=== PATIENT | female | born 1960 | race Caucasian/White ===

== ENCOUNTER 2018-05-25 19:43 | Emergency (ER) | payer SELFPAY ==
[2018-05-25] MEDS ORDERED: Ketorolac 30 MG/ML SDV IVPUSH ONE (19:58)
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
[2018-05-25] MEDS ORDERED: Bacitracin Oint 1 GM U/D Packet TOP ONE (21:12)
--- NOTE | 2018-05-28 10:37 | CR ---
EXAM DATE: 05/25/18 PATIENT'S AGE: 57 Patient: ALEXIS ANDRADE Facility: [place], [place] Site . Site : 1960 Study: XRay Extremity Left humerus [id number]/5/2018 8:50:55 PM Ordering Physician: Marko Escalona Final Report: Indication: Trauma Technique: Two views of the left humerus Comparison: None available Findings/Impression: Bones: No displaced fracture seen. No dislocation. Joint spaces: Unremarkable. Soft tissues: An irregular soft tissue lucency in the region of the deltoid muscle which may be related to fat planes, although soft tissue gas is not excluded. A small ill-defined calcific density adjacent to the scapular tip, nonspecific. Dictated by Paxton Londono MD @ 05/25/2018 8:55:17 PM Dictated by: Paxton Londono MD @ 05/25/2018 20:55:23 (Electronic Signature) Report Signed by Proxy. MARE
--- NOTE | 2018-05-28 10:38 | CR ---
EXAM DATE: 05/25/18 PATIENT'S AGE: 57 Patient: ALEXIS ANDRADE Facility: [place], [place] Site . Site : 1960 Study: XRay Extremity Left elbow [id number]/5/2018 8:51:27 PM Ordering Physician: Marko Escalona Final Report: INDICATION: Elbow Trauma TECHNIQUE: Elbow radiograph 2 views left COMPARISON: None FINDINGS: Bone: No acute fractures or aggressive bone lesions are identified. Joint: The elbow joint is unremarkable. No significant displacement of the anterior or posterior fat pads noted to suggest an effusion. Soft tissue: Unremarkable. No radiopaque foreign bodies are seen. IMPRESSION: 1. No acute osseous injuries or abnormalities are noted. Dictated by: Grant Walls MD @ 05/25/2018 20:53:36 (Electronic Signature) Report Signed by Proxy. [facility] HOSPITALMilena
--- NOTE | 2018-05-28 10:39 | CR ---
EXAM DATE: 05/25/18 PATIENT'S AGE: 57 Patient: ALEXIS ANDRADE Facility: [place], [place] Site . Site : 1960 Study: XRay Hip Left [id number]/5/2018 8:51:54 PM Ordering Physician: Marko Escalona Final Report: INDICATION: Hip trauma TECHNIQUE: Hip radiograph 2 views left COMPARISON: None FINDINGS: Bone: No acute fractures or aggressive bone lesions are identified. Joint: The hip joint is unremarkable. The visualized sacroiliac joints are unremarkable in appearance. The pubic symphysis is normal in appearance. Soft tissue: Unremarkable. No radiopaque foreign bodies are seen. There is a 9 mm density projecting over the obturator ring. This may represent a calcified lymph node. IMPRESSION: 1. No acute osseous injuries or abnormalities are noted. Dictated by Grant Walls MD @ 05/25/2018 8:56:41 PM Dictated by: Grant Walls MD @ 05/25/2018 20:56:47 (Electronic Signature) Report Signed by Proxy. [facility]
--- NOTE | 2018-05-28 10:41 | CR ---
EXAM DATE: 05/25/18 PATIENT'S AGE: 57 Patient: ALEXIS ANDRADE Facility: [place], [place] Site . Site : 1960 Study: XRay Extremity Left forearm [id number]/5/2018 8:52:22 PM Ordering Physician: Marko Escalona Final Report: INDICATION: Forearm Trauma TECHNIQUE: Forearm radiograph 2 views left COMPARISON: None FINDINGS: Bone: No acute fractures or aggressive bone lesions are identified. Joint: The visualized radiocarpal and elbow joints are unremarkable, but the elbow joint is not profiled. If there is pain or tenderness in this region, dedicated views of the elbow are recommended. Soft tissue: Unremarkable. No radiopaque foreign bodies are seen. IMPRESSION: 1. No acute osseous injuries or abnormalities are noted. Dictated by: Grant Walls MD @ 05/25/2018 20:57:26 (Electronic Signature) Report Signed by Proxy. MARE
== END 2018-05-25 21:31 | disposition home or self-care (01) ==
LOC: MW.ED 19:43
DX: S70.02XA Contusion of left hip, initial encounter (principal); S50.312A Abrasion of left elbow, initial encounter; Z91.040 Latex allergy status; Z88.6 Allergy status to analgesic agent; Y04.0XXA Assault by unarmed brawl or fight, initial encounter
CPT/HCPCS: 73060; 73070; 73090; 73502; 96374; 99284; J1885

== ENCOUNTER 2019-03-19 10:41 | Observation (INO) | payer OTHER ==
[2019-03-19] MEDS ORDERED: Albuterol/Ipratropium 3.0-0.5 MG/3 ML Neb Soln ONE (10:45)
[2019-03-19] MEDS ORDERED: Diltiazem 25 MG/5 ML SDV ONE (10:47)
[2019-03-19] MEDS ORDERED: Diltiazem 25 MG/5 ML SDV IVPUSH ONE (10:48)
[2019-03-19] MEDS ORDERED: Albuterol/Ipratropium 3.0-0.5 MG/3 ML Neb Soln NEB ONE (10:49)
[2019-03-19] MEDS ORDERED: Diltiazem 125 MG in Sodium Chloride 0.9% 100 ML IV SCH (11:00)
[2019-03-19] MEDS ORDERED: Sodium Chloride 0.9% 1,000 ML IV ONE (11:05)
--- NOTE | 2019-03-19 11:14 | EDM.PDOC ---
ED HPI GENERAL MEDICAL PROBLEM - General Chief Complaint: Chest Pain Stated Complaint: SHORTNESS OF BREATH Time Seen by Provider: 03/19/19 10:44 Source of Information: Reports: Patient History Limitations: Reports: Other (Anxiety) - History of Present Illness INITIAL COMMENTS - FREE TEXT/NARRATIVE: HISTORY AND PHYSICAL: History of present illness: Presents reporting shortness of breath for the last "couple of days". She states this morning it got worse. She is a regular every day smoker. She states that she had a physical by her regular doctor back in [facility] in Dec, 2018. Her medical problems include hypertension and GERD tobacco abuse and obesity. At that visit she was also diagnosed with hypothyroidism and started on medication. She states that she stopped the medication one week ago as she did not like the way it made her feel. No upper respiratory symptoms, chest pain, vomiting, sweating, cough. Review of systems: As per history of present illness and below otherwise all systems reviewed and negative. Past medical history: As per history of present illness and as reviewed below otherwise noncontributory. Surgical history: As per history of present illness and as reviewed below otherwise noncontributory. Social history: No reported history of drug or alcohol abuse. Family history: As per history of present illness and as reviewed below otherwise noncontributory. Physical exam: HEENT: Atraumatic, normocephalic, pupils reactive, negative for conjunctival pallor or scleral icterus, mucous membranes moist, throat clear, neck supple, nontender, trachea midline. Lungs: Clear to auscultation, breath sounds equal bilaterally, chest nontender. Heart: S1S2, regular, negative for clicks, rubs, or JVD. Abdomen: Soft, nondistended, nontender. Negative for masses or hepatosplenomegaly. Negative for costovertebral tenderness. Pelvis: Stable nontender. Genitourinary: Deferred. Rectal: Deferred. Extremities: Atraumatic, negative for cords or calf pain. Neurovascular unremarkable. Neuro: Awake, alert, oriented. Cranial nerves II through XII unremarkable. Cerebellum unremarkable. Motor and sensory unremarkable throughout. Exam nonfocal. Diagnostics: [ Therapeutics: [] Impression: [] Plan: [] Definitive disposition and diagnosis as appropriate pending reevaluation and review of above. Generalized Pain Score (Numeric/FACES): 0 - Related Data Allergies Allergy/AdvReac Type Severity Reaction Status Date / Time hydromorphone [From Dilaudid] Allergy Other Verified 03/19/19 10:51 latex Allergy Rash Verified 03/19/19 10:51 Latex, Natural Rubber Allergy Rash Verified 03/19/19 10:51 Home Meds: Home Meds Azithromycin [Zithromax] 250 mg PO DAILY 03/19/19 [History] Diclofenac Sodium [Voltaren] 75 mg PO BIDMEALS 03/19/19 [History] Levothyroxine 25 mcg PO ACBREAKFAST 03/19/19 [History] Lisinopril/Hydrochlorothiazide [Lisinopril-Hctz 20-25 mg Tab] 1 each PO DAILY [History] Metoprolol Succinate 25 mg PO DAILY 03/19/19 [History] Multivitamin [Multivitamins] 1 each PO DAILY 03/19/19 [History] Simvastatin 20 mg PO DAILY 03/19/19 [History] Diltiazem [Cardizem CD] 120 mg PO DAILY #30 cap.cd 03/20/19 [Rx] Warfarin [Coumadin] 5 mg PO DAILY@1400 #30 tablet 03/20/19 [Rx] Past Medical History HEENT History: Reports: None Cardiovascular History: Reports: Hypertension Genitourinary History: Reports: 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: Endocrine/Metabolic History: Reports: Other (See Below) Other Endocrine/Metabolic History: thyroid problems - Infectious Disease History Infectious Disease History: Reports: Chicken Pox, Mumps - Past Surgical History HEENT Surgical History: Reports: Tonsillectomy Cardiovascular Surgical History: Reports: None Female Surgical History: Reports: Section, Tubal Ligation Musculoskeletal Surgical History: Reports: Carpal Tunnel, Other (See Below) Other Musculoskeletal Surgeries/Procedures:: left hand for carpal tunnel, right knee Social & Family History - Family History Family Medical History: Noncontributory - Tobacco Use Smoking Status *Q: Current Every Day Smoker Years of Tobacco use: 30 Packs/Tins Daily: 1 - Caffeine Use Caffeine Use: Reports: Coffee Other Caffeine Use: 2 cups of coffee daily - Recreational Drug Use Recreational Drug Use: No ED ROS GENERAL - Review of Systems Review Of Systems: ROS reveals no pertinent complaints other than HPI. ED EXAM, GENERAL - Physical Exam Exam: See Below Exam Limited By: No Limitations General Appearance: Alert, Mild Distress (Due to shortness of breath and anxiety ) Ears: Normal External Exam Nose: Normal Inspection Throat/Mouth: Normal Inspection Head: Atraumatic, Normocephalic Neck: Normal Inspection Respiratory/Chest: No Respiratory Distress, Wheezing (Scattered, high pitched, not tight) Cardiovascular: Normal Peripheral Pulses, No Murmur, Tachycardia, Irregularly Irregular GI/Abdominal: Soft Back Exam: Normal Inspection Extremities: Normal Inspection Neurological: Alert, Oriented Psychiatric: Anxious Skin Exam: Warm, Dry, Intact, Normal Color, No Rash Lymphatic: No Adenopathy EKG INTERPRETATION EKG Date: 03/19/19 Rhythm: A-Fib P-Wave: Absent QRS: Normal ST-T: Normal QT: Normal (320) Comparison: NA - No Prior EKG Course - Vital Signs Last Recorded V/S: Last Vital Signs Temp 36.8 C 03/20/19 07:56 Pulse 89 03/20/19 08:34 Resp 19 03/20/19 07:56 BP 141/93 H 03/20/19 08:34 Pulse Ox 96 03/20/19 07:56 - Orders/Labs/Meds Labs: Laboratory Tests 03/19/19 03/19/19 03/19/19 Range/Units 10:45 10:45 10:45 WBC 9.75 (4.0-11.0) K/uL RBC 4.83 (4.30-5.90) M/uL Hgb 14.0 (12.0-16.0) g/dL Hct 42.1 (36.0-46.0) % MCV 87.2 (80.0-98.0) fL MCH 29.0 (27.0-32.0) pg MCHC 33.3 (31.0-37.0) g/dL RDW Std Deviation 45.9 (28.0-62.0) fl RDW Coeff of Primo 15 (11.0-15.0) % Plt Count 288 (150-400) K/uL MPV 9.90 (7.40-12.00) fL Neut % (Auto) 71.1 (48.0-80.0) % Lymph % (Auto) 21.6 (16.0-40.0) % Moffat % (Auto) 5.7 (0.0-15.0) % Eos % (Auto) 1.3 (0.0-7.0) % Baso % (Auto) 0.3 (0.0-1.5) % Neut # (Auto) 6.9 H (1.4-5.7) K/uL Lymph # (Auto) 2.1 (0.6-2.4) K/uL Moffat # (Auto) 0.6 (0.0-0.8) K/uL Eos # (Auto) 0.1 (0.0-0.7) K/uL Baso # (Auto) 0.0 (0.0-0.1) K/uL Nucleated RBC % 0.0 /100WBC Nucleated RBCs # 0 K/uL Sodium 141 (136-145) mmol/L Potassium 4.0 (3.5-5.1) mmol/L Chloride 108 H (98-107) mmol/L Carbon Dioxide 23.6 (21.0-32.0) mmol/L BUN 17 (7.0-18.0) mg/dL Creatinine 0.8 (0.6-1.0) mg/dL Est Cr Clr Drug Dosing 68.13 mL/min Estimated GFR (MDRD) > 60.0 ml/min Glucose 114 H (74-106) mg/dL Hemoglobin A1c (4.5-6.2) % Calcium 9.4 (8.5-10.1) mg/dL Total Bilirubin 0.7 (0.2-1.0) mg/dL AST 14 L (15-37) IU/L ALT 41 (14-63) IU/L Alkaline Phosphatase 61 (46-116) U/L Troponin I < 0.050 (0.000-0.056) ng/mL Total Protein 7.0 (6.4-8.2) g/dL Albumin 3.5 (3.4-5.0) g/dL Globulin 3.5 (2.6-4.0) g/dL Albumin/Globulin Ratio 1.0 (0.9-1.6) Triglycerides 68 (0-200) mg/dL Cholesterol 172 (50-200) mg/dL LDL Cholesterol, Calc 128 (60-180) mg/dL VLDL Cholesterol 13 (5-55) mg/dL HDL Cholesterol 30 L (40-60) mg/dL Cholesterol/HDL Ratio 5.7 (3.3-6.0) Free T4 (0.76-1.46) ng/dL Free T3 (2.18-3.98) pg/mL TSH 3rd Generation 3.24 (0.36-3.74) uIU/mL 03/19/19 03/19/19 Range/Units 10:45 10:45 WBC (4.0-11.0) K/uL RBC (4.30-5.90) M/uL Hgb (12.0-16.0) g/dL Hct (36.0-46.0) % MCV (80.0-98.0) fL MCH (27.0-32.0) pg MCHC (31.0-37.0) g/dL RDW Std Deviation (28.0-62.0) fl RDW Coeff of Primo (11.0-15.0) % Plt Count (150-400) K/uL MPV (7.40-12.00) fL Neut % (Auto) (48.0-80.0) % Lymph % (Auto) (16.0-40.0) % Moffat % (Auto) (0.0-15.0) % Eos % (Auto) (0.0-7.0) % Baso % (Auto) (0.0-1.5) % Neut # (Auto) (1.4-5.7) K/uL Lymph # (Auto) (0.6-2.4) K/uL Moffat # (Auto) (0.0-0.8) K/uL Eos # (Auto) (0.0-0.7) K/uL Baso # (Auto) (0.0-0.1) K/uL Nucleated RBC % /100WBC Nucleated RBCs # K/uL Sodium (136-145) mmol/L Potassium (3.5-5.1) mmol/L Chloride (98-107) mmol/L Carbon Dioxide (21.0-32.0) mmol/L BUN (7.0-18.0) mg/dL Creatinine (0.6-1.0) mg/dL Est Cr Clr Drug Dosing mL/min Estimated GFR (MDRD) ml/min Glucose (74-106) mg/dL Hemoglobin A1c 6.3 H (4.5-6.2) % Calcium (8.5-10.1) mg/dL Total Bilirubin (0.2-1.0) mg/dL AST (15-37) IU/L ALT (14-63) IU/L Alkaline Phosphatase (46-116) U/L Troponin I (0.000-0.056) ng/mL Total Protein (6.4-8.2) g/dL Albumin (3.4-5.0) g/dL Globulin (2.6-4.0) g/dL Albumin/Globulin Ratio (0.9-1.6) Triglycerides (0-200) mg/dL Cholesterol (50-200) mg/dL LDL Cholesterol, Calc (60-180) mg/dL VLDL Cholesterol (5-55) mg/dL HDL Cholesterol (40-60) mg/dL Cholesterol/HDL Ratio (3.3-6.0) Free T4 1.18 (0.76-1.46) ng/dL Free T3 2.60 (2.18-3.98) pg/mL TSH 3rd Generation (0.36-3.74) uIU/mL Meds: Medications Discontinued Medications Generic Name Dose Route Start Last Admin Trade Name Freq PRN Reason Stop Dose Admin Acetaminophen 650 mg 03/19/19 13:15 Tylenol PO Q4H PRN Pain (Mild 1-3)/fever Albuterol/Ipratropium Confirm 03/19/19 10:45 03/19/19 10:54 Duoneb 3.0-0.5 Mg/3 Ml Administered 03/19/19 10:46 Not Given Dose 3 ml .ROUTE .STK-MED ONE Albuterol/Ipratropium 3 ml 03/19/19 10:49 03/19/19 12:24 Duoneb 3.0-0.5 Mg/3 Ml NEB 03/19/19 10:50 Not Given ONETIME ONE Diltiazem HCl 20 mg 03/19/19 10:48 03/19/19 11:08 Diltiazem IVPUSH 03/19/19 10:49 20 mg ONETIME ONE Administration Diltiazem HCl Confirm 03/19/19 10:47 03/19/19 10:55 Diltiazem Administered 03/19/19 10:48 Not Given Dose 25 mg .ROUTE .STK-MED ONE Diltiazem HCl 120 mg 03/19/19 13:45 03/20/19 08:34 Cardizem Cd PO 120 mg DAILY EVELIN Administration Enoxaparin Sodium 40 mg 03/19/19 13:15 03/19/19 14:51 Lovenox SUBCUT 40 mg Q24H EVELIN Administration Enoxaparin Sodium 40 mg 03/20/19 07:30 03/20/19 08:34 Lovenox SUBCUT 40 mg Q24H EVELIN Administration Furosemide 20 mg 03/19/19 19:18 03/19/19 19:32 Lasix IVPUSH 03/19/19 19:19 20 mg ONETIME ONE Administration Lisinopril/HCTZ 2 tab 03/20/19 09:00 03/20/19 08:34 Lisinopril-Hctz 10-12.5 Mg PO 2 tab DAILY EVELIN Administration Diltiazem HCl 125 mg/ Sodium 125 mls @ 15 mls/hr 03/19/19 11:00 03/19/19 12: 02 Chloride IV 15 mg/hr NOW EVELIN 15 mls/hr Administration Protocol 15 MG/HR Sodium Chloride 1,000 mls @ 125 mls/hr 03/19/19 11:05 03/19/19 11:08 Normal Saline IV 03/19/19 19:04 125 mls/hr .Bolus ONE Administration Ibuprofen 600 mg 03/19/19 13:15 03/20/19 06:14 Motrin PO 600 mg Q6H PRN Administration Pain (mild 1-3) Iopamidol 50 ml 03/19/19 17:39 03/19/19 17:39 Isovue Multipack-370 (76%) IVPUSH 03/19/19 17:40 50 ml ONETIME STA Administration Levothyroxine Sodium 25 mcg 03/20/19 07:45 03/20/19 08:34 Levothyroxine PO 25 mcg ACBREAKFAST EVELIN Administration Metoprolol Succinate 25 mg 03/20/19 09:00 03/20/19 08:33 Toprol Xl PO 25 mg DAILY EVELIN Administration Ondansetron HCl 4 mg 03/19/19 13:15 Zofran Odt PO Q4H PRN nausea, able to take PO Ondansetron HCl 4 mg 03/19/19 13:15 Zofran IVPUSH Q4H PRN Nausea Polyethylene Glycol 17 gm 03/19/19 13:18 03/19/19 14:52 Miralax PO 03/19/19 13:19 17 gm DAILY ONE Administration Simvastatin 20 mg 03/20/19 21:00 Zocor PO BEDTIME [facility] Warfarin Sodium 5 mg 03/20/19 11:00 03/20/19 11:33 Coumadin PO 5 mg DAILY@1400 EVELIN Administration Departure - Departure Time of Disposition: 12:56 Disposition: Admitted As Inpatient 65 Clinical Impression: Nonspecific chest pain
[2019-03-19 11:34] LABS: BLOOD UREA NITROGEN,BUN 17 mg/dL (7.0-18.0); CARBON DIOXIDE,CO2 23.6 mmol/L (21.0-32.0); CHLORIDE,CL 108 mmol/L (98-107); GLUCOSE RANDOM 114 mg/dL (74-106); SODIUM,NA 141 mmol/L (136-145)
[2019-03-19] MEDS ORDERED: Diltiazem 100 MG in Sodium Chloride 0.9% 100 ML IV SCH (11:45)
--- NOTE | 2019-03-19 12:46 | CR ---
EXAMINATION: Portable chest radiograph. HISTORY: Shortness of breath. FINDINGS: The trachea is midline. Heart is borderline in size for technique. The cardiomediastinal silhouette is within normal limits. Mild left basilar atelectasis and/or infiltrate. No pleural effusion or pneumothorax. Osseous structures appear unremarkable. IMPRESSION: No acute cardiopulmonary process.
[2019-03-19] MEDS ORDERED: Ondansetron 4 MG/2 ML SDV IVPUSH PRN (13:15)
[2019-03-19] MEDS ORDERED: Acetaminophen 325 MG Tab PO PRN (13:15)
[2019-03-19] MEDS ORDERED: Ibuprofen 600 MG Tab PO PRN (13:15)
[2019-03-19] MEDS ORDERED: Ondansetron 4 MG Tab.DIS PO PRN (13:15)
[2019-03-19] MEDS ORDERED: Enoxaparin 40 MG/0.4 ML Syringe SUBCUT SCH (13:15)
[2019-03-19] MEDS ORDERED: Polyethylene Glycol 3350 Powder 17 GM Packet PO ONE (13:18)
--- NOTE | 2019-03-19 13:29 | PCM.HP ---
<Huan Gardiner - Last Filed: 03/19/19 13:32> H&P History of Present Illness - General Date of Service: 03/19/19 Admit Problem/Dx: Admission Diagnosis/Problem Admission Diagnosis/Problem Atrial fibrillation with rapid ventricular response - History of Present Illness Initial Comments - Free Text/Narative: 58 y/o female with history of hypertension and hypothyroidism who presented to the ER complaining of worsening shortness of breath for the past 2-3 days. States that she was getting more short of breath with ambulation. No history of asthma. She does smoke daily. No alcohol intake or illicit drug use. States she is not on any inhalers. States that about 1 week ago she stopped taking her levothyroxine since it was making her nauseous. She was recently started on levothyroxine about 1 month ago back in [place]. Denies any chest pain, fevers, productive cough. No abdominal pain, dysuria, diarrhea. She does endorse constipation. Has not had a normal BM in 1 week. - Related Data Allergies/Adverse Reactions: Allergies Allergy/AdvReac Type Severity Reaction Status Date / Time hydromorphone [From Dilaudid] Allergy Other Verified 03/19/19 10:51 latex Allergy Rash Verified 03/19/19 10:51 Latex, Natural Rubber Allergy Rash Verified 03/19/19 10:51 Home Medications: Home Meds Azithromycin [Zithromax] 250 mg PO DAILY 03/19/19 [History] Diclofenac Sodium [Voltaren] 75 mg PO BIDMEALS 03/19/19 [History] Levothyroxine 25 mcg PO ACBREAKFAST 03/19/19 [History] Lisinopril/Hydrochlorothiazide [Lisinopril-Hctz 20-25 mg Tab] 1 each PO DAILY [History] Metoprolol Succinate 25 mg PO DAILY 03/19/19 [History] Multivitamin [Multivitamins] 1 each PO DAILY 03/19/19 [History] Simvastatin 20 mg PO DAILY 03/19/19 [History] Past Medical History HEENT History: Reports: None Cardiovascular History: Reports: Hypertension Genitourinary History: Reports: 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: Endocrine/Metabolic History: Reports: Other (See Below) Other Endocrine/Metabolic History: thyroid problems - Infectious Disease History Infectious Disease History: Reports: Chicken Pox, Mumps - Past Surgical History HEENT Surgical History: Reports: Tonsillectomy Cardiovascular Surgical History: Reports: None Female Surgical History: Reports: Section, Tubal Ligation Musculoskeletal Surgical History: Reports: Carpal Tunnel, Other (See Below) Other Musculoskeletal Surgeries/Procedures:: left hand for carpal tunnel, right knee Social & Family History - Family History Family Medical History: Noncontributory - Tobacco Use Smoking Status *Q: Current Every Day Smoker Years of Tobacco use: 30 Packs/Tins Daily: 1 - Caffeine Use Caffeine Use: Reports: Coffee Other Caffeine Use: 2 cups of coffee daily - Recreational Drug Use Recreational Drug Use: No H&P Review of Systems - Review of Systems: Review Of Systems: ROS reveals no pertinent complaints other than HPI. Exam - Exam Exam: See Below - Vital Signs Vital Signs: Last Vital Signs Temp 36.5 C 03/19/19 10:45 Pulse 138 H 03/19/19 12:24 Resp 18 03/19/19 12:24 BP 166/96 H 03/19/19 12:24 Pulse Ox 96 03/19/19 12:24 Weight: 95.254 kg - Exam General: Alert, Oriented, Cooperative Lungs: Other (Left lower lung crackles. No wheezing. Good airflow bilatereally.) Cardiovascular: Regular Rate, Irregular Rhythm GI/Abdominal Exam: Soft, Non-Tender, No Distention Extremities: Normal Inspection, Other (Mild pedal edema) Skin: Warm, Dry Neuro Extensive - Mental Status: Alert, Oriented x3 - Patient Data Lab Results Last 24 hrs: Laboratory Results - last 24 hr 03/19/19 03/19/19 Range/Units 10:45 10:45 WBC 9.75 (4.0-11.0) K/uL RBC 4.83 (4.30-5.90) M/uL Hgb 14.0 (12.0-16.0) g/dL Hct 42.1 (36.0-46.0) % MCV 87.2 (80.0-98.0) fL MCH 29.0 (27.0-32.0) pg MCHC 33.3 (31.0-37.0) g/dL RDW Std Deviation 45.9 (28.0-62.0) fl RDW Coeff of Primo 15 (11.0-15.0) % Plt Count 288 (150-400) K/uL MPV 9.90 (7.40-12.00) fL Neut % (Auto) 71.1 (48.0-80.0) % Lymph % (Auto) 21.6 (16.0-40.0) % [place] % (Auto) 5.7 (0.0-15.0) % Eos % (Auto) 1.3 (0.0-7.0) % Baso % (Auto) 0.3 (0.0-1.5) % Neut # (Auto) 6.9 H (1.4-5.7) K/uL Lymph # (Auto) 2.1 (0.6-2.4) K/uL [place] # (Auto) 0.6 (0.0-0.8) K/uL Eos # (Auto) 0.1 (0.0-0.7) K/uL Baso # (Auto) 0.0 (0.0-0.1) K/uL Nucleated RBC % 0.0 /100WBC Nucleated RBCs # 0 K/uL Sodium 141 (136-145) mmol/L Potassium 4.0 (3.5-5.1) mmol/L Chloride 108 H (98-107) mmol/L Carbon Dioxide 23.6 (21.0-32.0) mmol/L BUN 17 (7.0-18.0) mg/dL Creatinine 0.8 (0.6-1.0) mg/dL Est Cr Clr Drug Dosing 68.13 mL/min Estimated GFR (MDRD) > 60.0 ml/min Glucose 114 H (74-106) mg/dL Calcium 9.4 (8.5-10.1) mg/dL Total Bilirubin 0.7 (0.2-1.0) mg/dL AST 14 L (15-37) IU/L ALT 41 (14-63) IU/L Alkaline Phosphatase 61 (46-116) U/L Troponin I < 0.050 (0.000-0.056) ng/mL Total Protein 7.0 (6.4-8.2) g/dL Albumin 3.5 (3.4-5.0) g/dL Globulin 3.5 (2.6-4.0) g/dL Albumin/Globulin Ratio 1.0 (0.9-1.6) TSH 3rd Generation 3.24 (0.36-3.74) uIU/mL Result Diagrams: 03/19/19 10:45 03/19/19 10:45 Problem List Initiated/Reviewed/Updated: Yes Orders Last 24hrs: Active Orders 24 hr Category Date Time Status Patient Status [ADT] Stat ADT 03/19/19 12:07 Active Bedrest Bathroom Privileges [RC] ASDIRECTED Care 03/19/19 13:15 Active Cardiac Monitoring [RC] CONTINUOUS Care 03/19/19 13:16 Active EKG 12 Lead [EKG Documentation Completion] [RC] STAT Care 03/19/19 11:02 Active Intake and Output [RC] QSHIFT Care 03/19/19 13:16 Active Oxygen Therapy [RC] PRN Care 03/19/19 13:15 Active RT Aerosol Therapy [RC] ASDIRECTED Care 03/19/19 10:49 Inactive VTE/DVT Education [RC] PER UNIT ROUTINE Care 03/19/19 13:15 Active Vital Signs [RC] Q4H Care 03/19/19 13:15 Active Regular Diet [DIET] Diet 03/19/19 Dinner Active Echo Comp wo Cont [US] Routine Exams 03/19/19 13:19 Ordered CBC WITH AUTO DIFF [HEME] AM Lab 03/20/19 05:11 Ordered COMPREHENSIVE METABOLIC PN,CMP [CHEM] AM Lab 03/20/19 05:11 Ordered GLYCOSYLATED HEMOGLOBIN,HGBA1C [CHEM] Routine Lab 03/19/19 13:20 Ordered LIPID PANEL [CHEM] Routine Lab 03/19/19 13:20 Ordered TROPONIN I [CHEM] Q6H Lab 03/19/19 17:00 Ordered TROPONIN I [CHEM] Q6H Lab 03/19/19 23:00 Ordered Acetaminophen [Tylenol] Med 03/19/19 13:15 Active 650 mg PO Q4H PRN Diltiazem 125 mg Med 03/19/19 11:00 Active Sodium Chloride 0.9% [Normal Saline] 100 ml IV NOW Enoxaparin [Lovenox] Med 03/19/19 13:15 Active 40 mg SUBCUT Q24H Ibuprofen [Motrin] Med 03/19/19 13:15 Active 600 mg PO Q6H PRN Ondansetron [Zofran ODT] Med 03/19/19 13:15 Ordered 4 mg PO Q4H PRN Ondansetron [Zofran] Med 03/19/19 13:15 Ordered 4 mg IVPUSH Q4H PRN Sodium Chloride 0.9% [Normal Saline] 1,000 ml Med 03/19/19 11:05 Active IV .Bolus Resuscitation Status Routine Resus Stat 03/19/19 13:15 Ordered Medication Orders Acetaminophen (Tylenol) 650 mg PO Q4H PRN PRN Reason: Pain (Mild 1-3)/fever Enoxaparin Sodium (Lovenox) 40 mg SUBCUT Q24H EVELIN Diltiazem HCl 125 mg/ Sodium (Chloride) 125 mls @ 15 mls/hr IV NOW EVELIN; Protocol Last Admin: 03/19/19 12:02 Dose: 15 mg/hr, 15 mls/hr Sodium Chloride (Normal Saline) 1,000 mls @ 125 mls/hr IV .Bolus ONE Stop: 03/19/19 19:04 Last Admin: 03/19/19 11:08 Dose: 125 mls/hr Ibuprofen (Motrin) 600 mg PO Q6H PRN PRN Reason: Pain (mild 1-3) Ondansetron HCl (Zofran Odt) 4 mg PO Q4H PRN PRN Reason: nausea, able to take PO Ondansetron HCl (Zofran) 4 mg IVPUSH Q4H PRN PRN Reason: Nausea Assessment/Plan Comment:: A: 1. AFib with RVR 2. Tobacco abuse 3. History of hypertension, hypothyroidism P: 1. Afib, rate controlled s/p diltiazem IV administration. Will start patient on diltiazem ER 120 mg PO daily. Telemetry. Troponin x2. Echo. Pending lipid panel and HgA1c. Will start patient on Eliquis 5 mg PO BID. CHADS-VASC score 2. 2. Tobacco abuse- offered nicotine patch but patient refused. 3. Hx of HTN, Hypothyroidism- Pending medication review since patient does not recall names or dosages. Dispo: likely dc tomorrow after Echo. <Dixon Ross - Last Filed: 03/19/19 18:49> H&P History of Present Illness - General Admit Problem/Dx: Admission Diagnosis/Problem Admission Diagnosis/Problem Atrial fibrillation with rapid ventricular response I have seen and examined the patient independently of Dr. Lamra MD. I have reviewed and agree with the plan of care as outlined by Dr. Newton and agree with the plan as outlined by this resident. I have discussed the case with the resident. Please see orders. Exam - Vital Signs Vital Signs: Last Vital Signs Temp 36.5 C 03/19/19 16:00 Pulse 115 H 03/19/19 17:46 Resp 20 03/19/19 17:46 BP 143/98 H 03/19/19 17:46 Pulse Ox 95 03/19/19 17:46 - Patient Data Lab Results Last 24 hrs: Laboratory Results - last 24 hr 03/19/19 03/19/19 03/19/19 Range/Units 10:45 10:45 10:45 WBC 9.75 (4.0-11.0) K/uL RBC 4.83 (4.30-5.90) M/uL Hgb 14.0 (12.0-16.0) g/dL Hct 42.1 (36.0-46.0) % MCV 87.2 (80.0-98.0) fL MCH 29.0 (27.0-32.0) pg MCHC 33.3 (31.0-37.0) g/dL RDW Std Deviation 45.9 (28.0-62.0) fl RDW Coeff of Primo 15 (11.0-15.0) % Plt Count 288 (150-400) K/uL MPV 9.90 (7.40-12.00) fL Neut % (Auto) 71.1 (48.0-80.0) % Lymph % (Auto) 21.6 (16.0-40.0) % [place] % (Auto) 5.7 (0.0-15.0) % Eos % (Auto) 1.3 (0.0-7.0) % Baso % (Auto) 0.3 (0.0-1.5) % Neut # (Auto) 6.9 H (1.4-5.7) K/uL Lymph # (Auto) 2.1 (0.6-2.4) K/uL [place] # (Auto) 0.6 (0.0-0.8) K/uL Eos # (Auto) 0.1 (0.0-0.7) K/uL Baso # (Auto) 0.0 (0.0-0.1) K/uL Nucleated RBC % 0.0 /100WBC Nucleated RBCs # 0 K/uL Sodium 141 (136-145) mmol/L Potassium 4.0 (3.5-5.1) mmol/L Chloride 108 H (98-107) mmol/L Carbon Dioxide 23.6 (21.0-32.0) mmol/L BUN 17 (7.0-18.0) mg/dL Creatinine 0.8 (0.6-1.0) mg/dL Est Cr Clr Drug Dosing 68.13 mL/min Estimated GFR (MDRD) > 60.0 ml/min Glucose 114 H (74-106) mg/dL Hemoglobin A1c (4.5-6.2) % Calcium 9.4 (8.5-10.1) mg/dL Total Bilirubin 0.7 (0.2-1.0) mg/dL AST 14 L (15-37) IU/L ALT 41 (14-63) IU/L Alkaline Phosphatase 61 (46-116) U/L Troponin I < 0.050 (0.000-0.056) ng/mL Total Protein 7.0 (6.4-8.2) g/dL Albumin 3.5 (3.4-5.0) g/dL Globulin 3.5 (2.6-4.0) g/dL Albumin/Globulin Ratio 1.0 (0.9-1.6) Triglycerides 68 (0-200) mg/dL Cholesterol 172 (50-200) mg/dL LDL Cholesterol, Calc 128 (60-180) mg/dL VLDL Cholesterol 13 (5-55) mg/dL HDL Cholesterol 30 L (40-60) mg/dL Cholesterol/HDL Ratio 5.7 (3.3-6.0) Free T4 (0.76-1.46) ng/dL Free T3 (2.18-3.98) pg/mL TSH 3rd Generation 3.24 (0.36-3.74) uIU/mL 03/19/19 03/19/19 03/19/19 Range/Units 10:45 10:45 17:01 WBC (4.0-11.0) K/uL RBC (4.30-5.90) M/uL Hgb (12.0-16.0) g/dL Hct (36.0-46.0) % MCV (80.0-98.0) fL MCH (27.0-32.0) pg MCHC (31.0-37.0) g/dL RDW Std Deviation (28.0-62.0) fl RDW Coeff of Primo (11.0-15.0) % Plt Count (150-400) K/uL MPV (7.40-12.00) fL Neut % (Auto) (48.0-80.0) % Lymph % (Auto) (16.0-40.0) % [place] % (Auto) (0.0-15.0) % Eos % (Auto) (0.0-7.0) % Baso % (Auto) (0.0-1.5) % Neut # (Auto) (1.4-5.7) K/uL Lymph # (Auto) (0.6-2.4) K/uL [place] # (Auto) (0.0-0.8) K/uL Eos # (Auto) (0.0-0.7) K/uL Baso # (Auto) (0.0-0.1) K/uL Nucleated RBC % /100WBC Nucleated RBCs # K/uL Sodium (136-145) mmol/L Potassium (3.5-5.1) mmol/L Chloride (98-107) mmol/L Carbon Dioxide (21.0-32.0) mmol/L BUN (7.0-18.0) mg/dL Creatinine (0.6-1.0) mg/dL Est Cr Clr Drug Dosing mL/min Estimated GFR (MDRD) ml/min Glucose (74-106) mg/dL Hemoglobin A1c 6.3 H (4.5-6.2) % Calcium (8.5-10.1) mg/dL Total Bilirubin (0.2-1.0) mg/dL AST (15-37) IU/L ALT (14-63) IU/L Alkaline Phosphatase (46-116) U/L Troponin I < 0.050 (0.000-0.056) ng/mL Total Protein (6.4-8.2) g/dL Albumin (3.4-5.0) g/dL Globulin (2.6-4.0) g/dL Albumin/Globulin Ratio (0.9-1.6) Triglycerides (0-200) mg/dL Cholesterol (50-200) mg/dL LDL Cholesterol, Calc (60-180) mg/dL VLDL Cholesterol (5-55) mg/dL HDL Cholesterol (40-60) mg/dL Cholesterol/HDL Ratio (3.3-6.0) Free T4 1.18 (0.76-1.46) ng/dL Free T3 2.60 (2.18-3.98) pg/mL TSH 3rd Generation (0.36-3.74) uIU/mL Result Diagrams: 03/19/19 10:45 03/19/19 10:45 Orders Last 24hrs: Active Orders 24 hr Category Date Time Status Admission Status [Patient Status] [ADT] Routine ADT 03/19/19 16:24 Active Bedrest Bathroom Privileges [RC] ASDIRECTED Care 03/19/19 13:15 Active Cardiac Monitoring [RC] Q8H Care 03/19/19 13:16 Active Intake and Output [RC] Q12H Care 03/19/19 13:16 Active Oxygen Therapy [RC] PRN Care 03/19/19 13:15 Active RT Aerosol Therapy [RC] ASDIRECTED Care 03/19/19 10:49 Inactive VTE/DVT Education [RC] PER UNIT ROUTINE Care 03/19/19 13:15 Active Vital Signs [RC] Q4H Care 03/19/19 13:15 Active Regular Diet [DIET] Diet 03/19/19 Dinner Active Echo Comp wo Cont [US] Routine Exams 03/19/19 13:19 Taken CBC WITH AUTO DIFF [HEME] AM Lab 03/20/19 05:11 Ordered COMPREHENSIVE METABOLIC PN,CMP [CHEM] AM Lab 03/20/19 05:11 Ordered TROPONIN I [CHEM] Q6H Lab 03/19/19 23:00 Ordered Acetaminophen [Tylenol] Med 03/19/19 13:15 Active 650 mg PO Q4H PRN Diltiazem [Cardizem CD] Med 03/19/19 13:45 Active 120 mg PO DAILY Enoxaparin [Lovenox] Med 03/19/19 13:15 Active 40 mg SUBCUT Q24H Ibuprofen [Motrin] Med 03/19/19 13:15 Active 600 mg PO Q6H PRN Ondansetron [Zofran ODT] Med 03/19/19 13:15 Active 4 mg PO Q4H PRN Ondansetron [Zofran] Med 03/19/19 13:15 Active 4 mg IVPUSH Q4H PRN Sodium Chloride 0.9% [Normal Saline] 1,000 ml Med 03/19/19 11:05 Active IV .Bolus Resuscitation Status Routine Resus Stat 03/19/19 13:15 Ordered Medication Orders Acetaminophen (Tylenol) 650 mg PO Q4H PRN PRN Reason: Pain (Mild 1-3)/fever Diltiazem HCl (Cardizem Cd) 120 mg PO DAILY [facility] Last Admin: 03/19/19 14:52 Dose: 120 mg Enoxaparin Sodium (Lovenox) 40 mg SUBCUT Q24H [facility] Last Admin: 03/19/19 14:51 Dose: 40 mg Sodium Chloride (Normal Saline) 1,000 mls @ 125 mls/hr IV .Bolus ONE Stop: 03/19/19 19:04 Last Admin: 03/19/19 11:08 Dose: 125 mls/hr Ibuprofen (Motrin) 600 mg PO Q6H PRN PRN Reason: Pain (mild 1-3) Ondansetron HCl (Zofran Odt) 4 mg PO Q4H PRN PRN Reason: nausea, able to take PO Ondansetron HCl (Zofran) 4 mg IVPUSH Q4H PRN PRN Reason: Nausea
[2019-03-19 13:45] LABS: HEMOGLOBIN A1C 6.3 % (4.5-6.2)
[2019-03-19] MEDS: Diltiazem 120 MG Cap.CD PO SCH (14:52)
[2019-03-19] MEDS ORDERED: Iopamidol 755 MG/ML 500 ML Multipack Bottle IVPUSH STA (17:39)
--- NOTE | 2019-03-19 18:26 | CT ---
INDICATION: Shortness of breath TECHNIQUE: CT chest with i.v. contrast using pulmonary angiographic technique. Coronal and sagittal reformats were obtained. CONTRAST: 50 mL Isovue 370 COMPARISON: None FINDINGS: Cardiovascular: The pulmonary arteries are unremarkable in enhancement with no evidence of acute pulmonary embolism. The heart has an unremarkable appearance and size. No sign of aneurysm in the thoracic aorta. Mediastinum: There is a precarinal lymph node present measuring 1.2 cm in maximal short axis diameter. Lung: Smooth interlobular septal thickening is present bilaterally with patchy ground-glass opacities in the lower lobes. There is a smoothly marginated round nodule measuring 6 mm in the base of the right upper lobe on image 41. Pleura and pericardium: Moderate, symmetric bilateral pleural effusions are noted. No significant pericardial effusion is present. Chest wall and axilla: No mass or adenopathy seen. Bone: Unremarkable for age. Upper abdomen: Unremarkable. IMPRESSIONS: 1. No CT evidence of acute pulmonary emboli seen. 2. Mild mediastinal adenopathy is noted. 3. Moderate, symmetric bilateral pleural effusions are noted. 4. Smooth interlobular septal thickening is present bilaterally with patchy ground-glass opacities in the lower lobes. Findings likely due to interstitial and alveolar pulmonary edema. 5. There is a smoothly marginated round nodule measuring 6 mm in the base of the right upper lobe on image 41. Initial followup chest CT in 6-12 months and subsequent followup at 18-24 months is advised in accordance with the 2017 Revised Fleischner Society Recommendations. Dictated by Grant Walls MD @ 03/19/2019 6:24:13 PM Please note that all CT scans at this facility use dose modulation, iterative reconstruction, and/or weight-based dosing when appropriate to reduce radiation dose to as low as reasonably achievable. Dictated by: Grant Walls MD @ 03/19/2019 18:24:18 (Electronically Signed)
[2019-03-19] MEDS ORDERED: Furosemide 20 MG/2 ML VIAL IVPUSH ONE (19:18)
[2019-03-20 06:52] LABS: BLOOD UREA NITROGEN,BUN 19 mg/dL (7.0-18.0); CARBON DIOXIDE,CO2 24.9 mmol/L (21.0-32.0); CHLORIDE,CL 108 mmol/L (98-107); GLUCOSE RANDOM 105 mg/dL (74-106); POTASSIUM,K 3.9 mmol/L (3.5-5.1); SODIUM,NA 141 mmol/L (136-145)
[2019-03-20] MEDS ORDERED: Enoxaparin 40 MG/0.4 ML Syringe SUBCUT SCH (07:30)
[2019-03-20] MEDS ORDERED: Levothyroxine 25 MCG Tab PO SCH (07:45)
[2019-03-20] MEDS: Diltiazem 120 MG Cap.CD PO SCH (08:34)
[2019-03-20] MEDS ORDERED: Metoprolol Succinate 25 MG Tab.ER PO SCH (09:00)
[2019-03-20] MEDS ORDERED: Lisinopril/Hydrochlorothiazide 10-12.5 MG Tab PO SCH (09:00)
[2019-03-20] MEDS ORDERED: Warfarin 5 MG Tab PO SCH (11:00)
--- NOTE | 2019-03-20 12:06 | PCM.DCSUM1 ---
<Huan Gardiner - Last Filed: 03/20/19 18:03> Discharge Summary - Hospital Course Free Text/Narrative:: 58 y/o female with history of hypothyroidism, hypertension who presented to the ER complaining of worsening shortness of breath. Found to be in Afib with RVR in the 150's. She was given IV diltiazem in the ER which seemed to lower her heart rate. Serial troponins were negative. She was started on diltiazem 120 mg PO daily which rate controlled her in the 90's. Echo was performed which did not show any wall motion abnormalities. EF was 55%. Patient was started on warfarin 5 mg PO daily since patient had financial concerns. She was discharged home on diltiazem 120 mg PO daily and warfarin 5 mg PO daily and daily INR checks. She was instructed to follow-up with her PCP and cardiology. Consider ordering outpatient sleep study. - Discharge Data Discharge Date: 03/20/19 Discharge Disposition: Home, Self-Care 01 Condition: Fair - Patient Instructions Diet: Heart Healthy Diet Activity: As Tolerated Notify Provider of: Fever, Increased Pain, Swelling and Redness, Nausea and/or Vomiting - Discharge Plan *PRESCRIPTION DRUG MONITORING PROGRAM REVIEWED*: Not Applicable *COPY OF PRESCRIPTION DRUG MONITORING REPORT IN PATIENT [place]: Not Applicable Prescriptions/Med Rec: Diltiazem [Cardizem CD] 120 mg PO DAILY #30 cap.cd Warfarin [Coumadin] 5 mg PO DAILY@1400 #30 tablet Home Medications: Home Meds Azithromycin [Zithromax] 250 mg PO DAILY 03/19/19 [History] Diclofenac Sodium [Voltaren] 75 mg PO BIDMEALS 03/19/19 [History] Levothyroxine 25 mcg PO ACBREAKFAST 03/19/19 [History] Lisinopril/Hydrochlorothiazide [Lisinopril-Hctz 20-25 mg Tab] 1 each PO DAILY [History] Metoprolol Succinate 25 mg PO DAILY 03/19/19 [History] Multivitamin [Multivitamins] 1 each PO DAILY 03/19/19 [History] Simvastatin 20 mg PO DAILY 03/19/19 [History] Diltiazem [Cardizem CD] 120 mg PO DAILY #30 cap.cd 03/20/19 [Rx] Warfarin [Coumadin] 5 mg PO DAILY@1400 #30 tablet 03/20/19 [Rx] Patient Handouts: Bleeding Precautions When on Anticoagulant Therapy, Adult, Diltiazem extended-release capsules or tablets, Vitamin K Foods and Warfarin, What You Need to Know About Warfarin, Warfarin Coagulopathy, Warfarin tablets Referrals: Huan Gardiner MD [Resident] - 03/28/19 3:00 pm Jenny Yi MD [Physician] - 04/17/19 9:30 am - Discharge Summary/Plan Comment DC Time >30 min.: No - Patient Data Vitals - Most Recent: Last Vital Signs Temp 36.8 C 03/20/19 07:56 Pulse 89 03/20/19 08:34 Resp 19 03/20/19 07:56 BP 141/93 H 03/20/19 08:34 Pulse Ox 96 03/20/19 07:56 Weight - Most Recent: 96.162 kg I&O - Last 24 hours: Intake & Output 03/19/19 03/20/19 03/20/19 22:59 06:59 14:59 Intake Total 210 350 Output Total 250 2250 400 Balance -40 -1900 -400 Lab Results - Last 24 hrs: Laboratory Results - last 24 hr 03/19/19 03/19/19 03/19/19 Range/Units 10:45 10:45 10:45 WBC (4.0-11.0) K/uL RBC (4.30-5.90) M/uL Hgb (12.0-16.0) g/dL Hct (36.0-46.0) % MCV (80.0-98.0) fL MCH (27.0-32.0) pg MCHC (31.0-37.0) g/dL RDW Std Deviation (28.0-62.0) fl RDW Coeff of Primo (11.0-15.0) % Plt Count (150-400) K/uL MPV (7.40-12.00) fL Neut % (Auto) (48.0-80.0) % Lymph % (Auto) (16.0-40.0) % Garvin % (Auto) (0.0-15.0) % Eos % (Auto) (0.0-7.0) % Baso % (Auto) (0.0-1.5) % Neut # (Auto) (1.4-5.7) K/uL Lymph # (Auto) (0.6-2.4) K/uL Garvin # (Auto) (0.0-0.8) K/uL Eos # (Auto) (0.0-0.7) K/uL Baso # (Auto) (0.0-0.1) K/uL Nucleated RBC % /100WBC Nucleated RBCs # K/uL INR Sodium (136-145) mmol/L Potassium (3.5-5.1) mmol/L Chloride (98-107) mmol/L Carbon Dioxide (21.0-32.0) mmol/L BUN (7.0-18.0) mg/dL Creatinine (0.6-1.0) mg/dL Est Cr Clr Drug Dosing mL/min Estimated GFR (MDRD) ml/min Glucose (74-106) mg/dL Hemoglobin A1c 6.3 H (4.5-6.2) % Calcium (8.5-10.1) mg/dL Total Bilirubin (0.2-1.0) mg/dL AST (15-37) IU/L ALT (14-63) IU/L Alkaline Phosphatase (46-116) U/L Troponin I (0.000-0.056) ng/mL Total Protein (6.4-8.2) g/dL Albumin (3.4-5.0) g/dL Globulin (2.6-4.0) g/dL Albumin/Globulin Ratio (0.9-1.6) Triglycerides 68 (0-200) mg/dL Cholesterol 172 (50-200) mg/dL LDL Cholesterol, Calc 128 (60-180) mg/dL VLDL Cholesterol 13 (5-55) mg/dL HDL Cholesterol 30 L (40-60) mg/dL Cholesterol/HDL Ratio 5.7 (3.3-6.0) Free T4 1.18 (0.76-1.46) ng/dL Free T3 2.60 (2.18-3.98) pg/mL 03/19/19 03/19/19 03/20/19 Range/Units 17:01 22:54 06:05 WBC 9.00 (4.0-11.0) K/uL RBC 4.74 (4.30-5.90) M/uL Hgb 13.3 (12.0-16.0) g/dL Hct 41.9 (36.0-46.0) % MCV 88.4 (80.0-98.0) fL MCH 28.1 (27.0-32.0) pg MCHC 31.7 (31.0-37.0) g/dL RDW Std Deviation 47.7 (28.0-62.0) fl RDW Coeff of Primo 15 (11.0-15.0) % Plt Count 253 (150-400) K/uL MPV 9.50 (7.40-12.00) fL Neut % (Auto) 66.9 (48.0-80.0) % Lymph % (Auto) 23.6 (16.0-40.0) % Garvin % (Auto) 6.8 (0.0-15.0) % Eos % (Auto) 2.1 (0.0-7.0) % Baso % (Auto) 0.6 (0.0-1.5) % Neut # (Auto) 6.0 H (1.4-5.7) K/uL Lymph # (Auto) 2.1 (0.6-2.4) K/uL Garvin # (Auto) 0.6 (0.0-0.8) K/uL Eos # (Auto) 0.2 (0.0-0.7) K/uL Baso # (Auto) 0.1 (0.0-0.1) K/uL Nucleated RBC % 0.0 /100WBC Nucleated RBCs # 0 K/uL INR Sodium (136-145) mmol/L Potassium (3.5-5.1) mmol/L Chloride (98-107) mmol/L Carbon Dioxide (21.0-32.0) mmol/L BUN (7.0-18.0) mg/dL Creatinine (0.6-1.0) mg/dL Est Cr Clr Drug Dosing mL/min Estimated GFR (MDRD) ml/min Glucose (74-106) mg/dL Hemoglobin A1c (4.5-6.2) % Calcium (8.5-10.1) mg/dL Total Bilirubin (0.2-1.0) mg/dL AST (15-37) IU/L ALT (14-63) IU/L Alkaline Phosphatase (46-116) U/L Troponin I < 0.050 < 0.050 (0.000-0.056) ng/mL Total Protein (6.4-8.2) g/dL Albumin (3.4-5.0) g/dL Globulin (2.6-4.0) g/dL Albumin/Globulin Ratio (0.9-1.6) Triglycerides (0-200) mg/dL Cholesterol (50-200) mg/dL LDL Cholesterol, Calc (60-180) mg/dL VLDL Cholesterol (5-55) mg/dL HDL Cholesterol (40-60) mg/dL Cholesterol/HDL Ratio (3.3-6.0) Free T4 (0.76-1.46) ng/dL Free T3 (2.18-3.98) pg/mL 03/20/19 03/20/19 Range/Units 06:05 07:42 WBC (4.0-11.0) K/uL RBC (4.30-5.90) M/uL Hgb (12.0-16.0) g/dL Hct (36.0-46.0) % MCV (80.0-98.0) fL MCH (27.0-32.0) pg MCHC (31.0-37.0) g/dL RDW Std Deviation (28.0-62.0) fl RDW Coeff of Primo (11.0-15.0) % Plt Count (150-400) K/uL MPV (7.40-12.00) fL Neut % (Auto) (48.0-80.0) % Lymph % (Auto) (16.0-40.0) % Garvin % (Auto) (0.0-15.0) % Eos % (Auto) (0.0-7.0) % Baso % (Auto) (0.0-1.5) % Neut # (Auto) (1.4-5.7) K/uL Lymph # (Auto) (0.6-2.4) K/uL Garvin # (Auto) (0.0-0.8) K/uL Eos # (Auto) (0.0-0.7) K/uL Baso # (Auto) (0.0-0.1) K/uL Nucleated RBC % /100WBC Nucleated RBCs # K/uL INR 1.06 Sodium 141 (136-145) mmol/L Potassium 3.9 (3.5-5.1) mmol/L Chloride 108 H (98-107) mmol/L Carbon Dioxide 24.9 (21.0-32.0) mmol/L BUN 19 H (7.0-18.0) mg/dL Creatinine 0.7 (0.6-1.0) mg/dL Est Cr Clr Drug Dosing 77.87 mL/min Estimated GFR (MDRD) > 60.0 ml/min Glucose 105 (74-106) mg/dL Hemoglobin A1c (4.5-6.2) % Calcium 9.0 (8.5-10.1) mg/dL Total Bilirubin 0.8 (0.2-1.0) mg/dL AST 20 (15-37) IU/L ALT 42 (14-63) IU/L Alkaline Phosphatase 54 (46-116) U/L Troponin I (0.000-0.056) ng/mL Total Protein 6.7 (6.4-8.2) g/dL Albumin 3.3 L (3.4-5.0) g/dL Globulin 3.4 (2.6-4.0) g/dL Albumin/Globulin Ratio 1.0 (0.9-1.6) Triglycerides (0-200) mg/dL Cholesterol (50-200) mg/dL LDL Cholesterol, Calc (60-180) mg/dL VLDL Cholesterol (5-55) mg/dL HDL Cholesterol (40-60) mg/dL Cholesterol/HDL Ratio (3.3-6.0) Free T4 (0.76-1.46) ng/dL Free T3 (2.18-3.98) pg/mL Med Orders - Current: Current Medications Discontinued Medications Acetaminophen (Tylenol) 650 mg PO Q4H PRN PRN Reason: Pain (Mild 1-3)/fever Albuterol/Ipratropium (Duoneb 3.0-0.5 Mg/3 Ml) Confirm Administered Dose 3 ml .ROUTE .STK-MED ONE Stop: 03/19/19 10:46 Last Admin: 03/19/19 10:54 Dose: Not Given Albuterol/Ipratropium (Duoneb 3.0-0.5 Mg/3 Ml) 3 ml NEB ONETIME ONE Stop: 03/19/19 10:50 Last Admin: 03/19/19 12:24 Dose: Not Given Diltiazem HCl (Diltiazem) 20 mg IVPUSH ONETIME ONE Stop: 03/19/19 10:49 Last Admin: 03/19/19 11:08 Dose: 20 mg Diltiazem HCl (Diltiazem) Confirm Administered Dose 25 mg .ROUTE .STK-MED ONE Stop: 03/19/19 10:48 Last Admin: 03/19/19 10:55 Dose: Not Given Diltiazem HCl (Cardizem Cd) 120 mg PO DAILY [facility] Last Admin: 03/20/19 08:34 Dose: 120 mg Enoxaparin Sodium (Lovenox) 40 mg SUBCUT Q24H [facility] Last Admin: 03/19/19 14:51 Dose: 40 mg Enoxaparin Sodium (Lovenox) 40 mg SUBCUT Q24H [facility] Last Admin: 03/20/19 08:34 Dose: 40 mg Furosemide (Lasix) 20 mg IVPUSH ONETIME ONE Stop: 03/19/19 19:19 Last Admin: 03/19/19 19:32 Dose: 20 mg Lisinopril/HCTZ (Lisinopril-Hctz 10-12.5 Mg) 2 tab PO DAILY [facility] Last Admin: 03/20/19 08:34 Dose: 2 tab Diltiazem HCl 125 mg/ Sodium (Chloride) 125 mls @ 15 mls/hr IV NOW [facility]; Protocol Last Admin: 03/19/19 12:02 Dose: 15 mg/hr, 15 mls/hr Sodium Chloride (Normal Saline) 1,000 mls @ 125 mls/hr IV .Bolus ONE Stop: 03/19/19 19:04 Last Admin: 03/19/19 11:08 Dose: 125 mls/hr Ibuprofen (Motrin) 600 mg PO Q6H PRN PRN Reason: Pain (mild 1-3) Last Admin: 03/20/19 06:14 Dose: 600 mg Iopamidol (Isovue Multipack-370 (76%)) 50 ml IVPUSH ONETIME STA Stop: 03/19/19 17:40 Last Admin: 03/19/19 17:39 Dose: 50 ml Levothyroxine Sodium (Levothyroxine) 25 mcg PO ACBREAKFAST [facility] Last Admin: 03/20/19 08:34 Dose: 25 mcg Metoprolol Succinate (Toprol Xl) 25 mg PO DAILY [facility] Last Admin: 03/20/19 08:33 Dose: 25 mg Ondansetron HCl (Zofran Odt) 4 mg PO Q4H PRN PRN Reason: nausea, able to take PO Ondansetron HCl (Zofran) 4 mg IVPUSH Q4H PRN PRN Reason: Nausea Polyethylene Glycol (Miralax) 17 gm PO DAILY ONE Stop: 03/19/19 13:19 Last Admin: 03/19/19 14:52 Dose: 17 gm Simvastatin (Zocor) 20 mg PO BEDTIME [facility] Warfarin Sodium (Coumadin) 5 mg PO DAILY@1400 [facility] Last Admin: 03/20/19 11:33 Dose: 5 mg <Dixon Ross - Last Filed: 03/20/19 18:13> Discharge Summary - Hospital Course HPI Initial Comments: I have seen and examined the patient independently of Dr. Lamar MD. I have discussed the case with him. I have reviewed and agreed with the plan of care for this patient as outlined by him. Please see orders. - Patient Data Vitals - Most Recent: Last Vital Signs Temp 36.8 C 03/20/19 07:56 Pulse 89 03/20/19 08:34 Resp 19 03/20/19 07:56 BP 141/93 H 03/20/19 08:34 Pulse Ox 96 03/20/19 07:56 I&O - Last 24 hours: Intake & Output 03/20/19 03/20/19 03/20/19 06:59 14:59 22:59 Intake Total 350 Output Total 2250 400 Balance -1900 -400 Lab Results - Last 24 hrs: Laboratory Results - last 24 hr 03/19/19 03/20/19 03/20/19 Range/Units 22:54 06:05 06:05 WBC 9.00 (4.0-11.0) K/uL RBC 4.74 (4.30-5.90) M/uL Hgb 13.3 (12.0-16.0) g/dL Hct 41.9 (36.0-46.0) % MCV 88.4 (80.0-98.0) fL MCH 28.1 (27.0-32.0) pg MCHC 31.7 (31.0-37.0) g/dL RDW Std Deviation 47.7 (28.0-62.0) fl RDW Coeff of Primo 15 (11.0-15.0) % Plt Count 253 (150-400) K/uL MPV 9.50 (7.40-12.00) fL Neut % (Auto) 66.9 (48.0-80.0) % Lymph % (Auto) 23.6 (16.0-40.0) % Garvin % (Auto) 6.8 (0.0-15.0) % Eos % (Auto) 2.1 (0.0-7.0) % Baso % (Auto) 0.6 (0.0-1.5) % Neut # (Auto) 6.0 H (1.4-5.7) K/uL Lymph # (Auto) 2.1 (0.6-2.4) K/uL Garvin # (Auto) 0.6 (0.0-0.8) K/uL Eos # (Auto) 0.2 (0.0-0.7) K/uL Baso # (Auto) 0.1 (0.0-0.1) K/uL Nucleated RBC % 0.0 /100WBC Nucleated RBCs # 0 K/uL INR Sodium 141 (136-145) mmol/L Potassium 3.9 (3.5-5.1) mmol/L Chloride 108 H (98-107) mmol/L Carbon Dioxide 24.9 (21.0-32.0) mmol/L BUN 19 H (7.0-18.0) mg/dL Creatinine 0.7 (0.6-1.0) mg/dL Est Cr Clr Drug Dosing 77.87 mL/min Estimated GFR (MDRD) > 60.0 ml/min Glucose 105 (74-106) mg/dL Calcium 9.0 (8.5-10.1) mg/dL Total Bilirubin 0.8 (0.2-1.0) mg/dL AST 20 (15-37) IU/L ALT 42 (14-63) IU/L Alkaline Phosphatase 54 (46-116) U/L Troponin I < 0.050 (0.000-0.056) ng/mL Total Protein 6.7 (6.4-8.2) g/dL Albumin 3.3 L (3.4-5.0) g/dL Globulin 3.4 (2.6-4.0) g/dL Albumin/Globulin Ratio 1.0 (0.9-1.6) 03/20/19 Range/Units 07:42 WBC (4.0-11.0) K/uL RBC (4.30-5.90) M/uL Hgb (12.0-16.0) g/dL Hct (36.0-46.0) % MCV (80.0-98.0) fL MCH (27.0-32.0) pg MCHC (31.0-37.0) g/dL RDW Std Deviation (28.0-62.0) fl RDW Coeff of Primo (11.0-15.0) % Plt Count (150-400) K/uL MPV (7.40-12.00) fL Neut % (Auto) (48.0-80.0) % Lymph % (Auto) (16.0-40.0) % Garvin % (Auto) (0.0-15.0) % Eos % (Auto) (0.0-7.0) % Baso % (Auto) (0.0-1.5) % Neut # (Auto) (1.4-5.7) K/uL Lymph # (Auto) (0.6-2.4) K/uL Garvin # (Auto) (0.0-0.8) K/uL Eos # (Auto) (0.0-0.7) K/uL Baso # (Auto) (0.0-0.1) K/uL Nucleated RBC % /100WBC Nucleated RBCs # K/uL INR 1.06 Sodium (136-145) mmol/L Potassium (3.5-5.1) mmol/L Chloride (98-107) mmol/L Carbon Dioxide (21.0-32.0) mmol/L BUN (7.0-18.0) mg/dL Creatinine (0.6-1.0) mg/dL Est Cr Clr Drug Dosing mL/min Estimated GFR (MDRD) ml/min Glucose (74-106) mg/dL Calcium (8.5-10.1) mg/dL Total Bilirubin (0.2-1.0) mg/dL AST (15-37) IU/L ALT (14-63) IU/L Alkaline Phosphatase (46-116) U/L Troponin I (0.000-0.056) ng/mL Total Protein (6.4-8.2) g/dL Albumin (3.4-5.0) g/dL Globulin (2.6-4.0) g/dL Albumin/Globulin Ratio (0.9-1.6) Med Orders - Current: Current Medications Discontinued Medications Acetaminophen (Tylenol) 650 mg PO Q4H PRN PRN Reason: Pain (Mild 1-3)/fever Albuterol/Ipratropium (Duoneb 3.0-0.5 Mg/3 Ml) Confirm Administered Dose 3 ml .ROUTE .STK-MED ONE Stop: 03/19/19 10:46 Last Admin: 03/19/19 10:54 Dose: Not Given Albuterol/Ipratropium (Duoneb 3.0-0.5 Mg/3 Ml) 3 ml NEB ONETIME ONE Stop: 03/19/19 10:50 Last Admin: 03/19/19 12:24 Dose: Not Given Diltiazem HCl (Diltiazem) 20 mg IVPUSH ONETIME ONE Stop: 03/19/19 10:49 Last Admin: 03/19/19 11:08 Dose: 20 mg Diltiazem HCl (Diltiazem) Confirm Administered Dose 25 mg .ROUTE .STK-MED ONE Stop: 03/19/19 10:48 Last Admin: 03/19/19 10:55 Dose: Not Given Diltiazem HCl (Cardizem Cd) 120 mg PO DAILY [facility] Last Admin: 03/20/19 08:34 Dose: 120 mg Enoxaparin Sodium (Lovenox) 40 mg SUBCUT Q24H [facility] Last Admin: 03/19/19 14:51 Dose: 40 mg Enoxaparin Sodium (Lovenox) 40 mg SUBCUT Q24H [facility] Last Admin: 03/20/19 08:34 Dose: 40 mg Furosemide (Lasix) 20 mg IVPUSH ONETIME ONE Stop: 03/19/19 19:19 Last Admin: 03/19/19 19:32 Dose: 20 mg Lisinopril/HCTZ (Lisinopril-Hctz 10-12.5 Mg) 2 tab PO DAILY [facility] Last Admin: 03/20/19 08:34 Dose: 2 tab Diltiazem HCl 125 mg/ Sodium (Chloride) 125 mls @ 15 mls/hr IV NOW [facility]; Protocol Last Admin: 03/19/19 12:02 Dose: 15 mg/hr, 15 mls/hr Sodium Chloride (Normal Saline) 1,000 mls @ 125 mls/hr IV .Bolus ONE Stop: 03/19/19 19:04 Last Admin: 03/19/19 11:08 Dose: 125 mls/hr Ibuprofen (Motrin) 600 mg PO Q6H PRN PRN Reason: Pain (mild 1-3) Last Admin: 03/20/19 06:14 Dose: 600 mg Iopamidol (Isovue Multipack-370 (76%)) 50 ml IVPUSH ONETIME STA Stop: 03/19/19 17:40 Last Admin: 03/19/19 17:39 Dose: 50 ml Levothyroxine Sodium (Levothyroxine) 25 mcg PO ACBREAKFAST [facility] Last Admin: 03/20/19 08:34 Dose: 25 mcg Metoprolol Succinate (Toprol Xl) 25 mg PO DAILY [facility] Last Admin: 03/20/19 08:33 Dose: 25 mg Ondansetron HCl (Zofran Odt) 4 mg PO Q4H PRN PRN Reason: nausea, able to take PO Ondansetron HCl (Zofran) 4 mg IVPUSH Q4H PRN PRN Reason: Nausea Polyethylene Glycol (Miralax) 17 gm PO DAILY ONE Stop: 03/19/19 13:19 Last Admin: 03/19/19 14:52 Dose: 17 gm Simvastatin (Zocor) 20 mg PO BEDTIME [facility] Warfarin Sodium (Coumadin) 5 mg PO DAILY@1400 [facility] Last Admin: 03/20/19 11:33 Dose: 5 mg
[2019-03-20] MEDS ORDERED: Simvastatin 20 MG Tab PO SCH (21:00)
--- NOTE | 2019-03-22 12:43 | ECHO ---
EXAM DATE: 03/19/19 PATIENT'S AGE: 58 The echocardiogram report can be seen in this patient's EMR ( Electronic Medical Record) in the Reports section. The report has also been scanned into PACs. MARE
== END 2019-03-20 11:52 | disposition home or self-care (01) ==
LOC: MW.ED 10:41 → MW.ICU 12:26 → INTOOBSV 12:26 → UNDODISIN 03-20 11:50
PROVIDERS: ADMIT Internal Medicine; ATTEND Internal Medicine
DX: I48.91 Unspecified atrial fibrillation (principal); E03.9 Hypothyroidism, unspecified; I10 Essential (primary) hypertension; E66.9 Obesity, unspecified; K21.9 Gastro-esophageal reflux disease without esophagitis; F17.210 Nicotine dependence, cigarettes, uncomplicated; Z88.5 Allergy status to narcotic agent; Z91.040 Latex allergy status; Z98.51 Tubal ligation status; Z68.35 Body mass index [BMI] 35.0-35.9, adult
CPT/HCPCS: 36415; 71045; 71275; 80053; 80061; 83036; 84439; 84443; 84481; 84484; 85025; 85610; 93005; 93306; 96361; 96365; 96372; 96374; 96375; 99285; A9270; G0378; J1650; J3490; J7030; J7040; Q9967; 99284

== ENCOUNTER 2021-05-09 23:27 | Emergency (ER) | payer SELFPAY ==
[2021-05-10] MEDS ORDERED: Cephalexin 500 MG Cap PO STA (00:26)
--- NOTE | 2021-05-10 00:28 | EDM.PDOC ---
ED HPI GENERAL MEDICAL PROBLEM - General Chief Complaint: General Stated Complaint: RT SIDE FACE SWELLING, JAW PAIN Time Seen by Provider: 05/09/21 23:59 - History of Present Illness INITIAL COMMENTS - FREE TEXT/NARRATIVE: Patient presents with tenderness and swelling to the right side of the face for 1 day. No fevers. No pounding headache. No trauma. No exacerbating alleviating factors. Patient normal in the eye. Patient did not get anything in the eye. no eye discharge Right Face/Facial Pain Score (Numeric/FACES): 4 - Related Data Allergies Allergy/AdvReac Type Severity Reaction Status Date / Time hydromorphone [From Dilaudid] Allergy Other Verified 05/09/21 23:44 latex Allergy Rash Verified 05/09/21 23:44 Latex, Natural Rubber Allergy Rash Verified 05/09/21 23:44 Home Meds: Home Meds Lisinopril/Hydrochlorothiazide [Lisinopril-Hctz 20-25 mg Tab] 1 each PO DAILY 03/19/19 [History] Metoprolol Succinate 25 mg PO DAILY 03/19/19 [History] Multivitamin [Multivitamins] 1 each PO DAILY 03/19/19 [History] Diltiazem [Cardizem CD] 120 mg PO DAILY #30 cap.cd 03/20/19 [Rx] Apixaban [Eliquis] 5 mg PO 05/09/21 [History] Ashwagandha Root Extract 05/09/21 [History] Aspirin [Chava Chewable] 81 mg PO 05/09/21 [History] Loratadine 05/09/21 [History] Omeprazole 20 mg PO ONETIME 05/09/21 [History] Rosuvastatin Calcium 10 mg PO 05/09/21 [History] cephALEXin [Keflex] 500 mg PO QID #28 cap 05/10/21 [Rx] Past Medical History HEENT History: Reports: None Cardiovascular History: Reports: Hypertension Genitourinary History: Reports: 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: Endocrine/Metabolic History: Reports: Other (See Below) Other Endocrine/Metabolic History: thyroid problems - Infectious Disease History Infectious Disease History: Reports: Chicken Pox, Mumps - Past Surgical History HEENT Surgical History: Reports: Tonsillectomy Cardiovascular Surgical History: Reports: None Female Surgical History: Reports: Section, Tubal Ligation Musculoskeletal Surgical History: Reports: Carpal Tunnel, Other (See Below) Other Musculoskeletal Surgeries/Procedures:: left hand for carpal tunnel, right knee Social & Family History - Family History Family Medical History: No Pertinent Family History - Tobacco Use Second Hand Smoke Exposure: No - Caffeine Use Caffeine Use: Reports: None Other Caffeine Use: 2 cups of coffee daily - Recreational Drug Use Recreational Drug Use: No ED ROS GENERAL - Review of Systems Review Of Systems: See Below Constitutional: Denies: Fever HEENT: Reports: Other (No itching. Swelling to the right eyelid) Respiratory: Denies: Shortness of Breath Cardiovascular: Denies: Chest Pain GI/Abdominal: Reports: Nausea Skin: Reports: Rash ED EXAM, GENERAL - Physical Exam Exam: See Below Free Text/Narrative:: CONSTITUTIONAL: well appearing in no acute distress SKIN: dry, and intact without rash HENT: Normocephalic, atraumatic. Patient has some edema to the right upper eyelid. No marked erythema or warmth. Right TM is clear and oropharynx is clear. There is no marked sinus tenderness. There is no stye that is present. There is no foreign body to the eye and no evidence of of conjunctival edema. The pupils round and reactive. There is no proptosis. Extraocular motion intact NECK: normal range of motion PULMONARY: normal chest rise and fall, no respiratory distress or stridor NEUROLOGIC: normal speech, moves all extremities, grossly non-focal MUSCULOSKELETAL: no gross deformities, atraumatic PSYCHIATRIC: normal mood and affect Course - Vital Signs Text/Narrative:: Allergic reaction, periorbital cellulitis, orbital cellulitis, sinus infection, ear infection, allergies, chalazion, hordeolum, other Patient presents as outlined above. There is some objective swelling to the upper eyelid. There is no proptosis and normal extraocular movements I do not think the patient has an orbital cellulitis. The patient is not diabetic. She is complaining of some pain to the area. There is no marked sinus tenderness but given the pain and swelling without itching patient be treated for possible early periorbital cellulitis. Antibiotics with Keflex return precautions and PCP follow-up advised Last Recorded V/S: Last Vital Signs Temp 36.5 C 05/09/21 23:41 Pulse 131 H 05/09/21 23:41 Resp 20 05/09/21 23:41 BP 145/82 H 05/09/21 23:41 Pulse Ox 96 05/09/21 23:41 Departure - Departure Time of Disposition: 00:26 Disposition: Home, Self-Care 01 Condition: Good Clinical Impression: Periorbital cellulitis of right eye - Discharge Information Instructions: Preseptal Cellulitis, Adult Referrals: PCP,Not In Area [Primary Care Provider] - Additional Instructions: Take antibiotics as prescribed. Return for increased swelling, fever, pain, change or worsening condition or lack of improvement. Follow-up with primary care doctor early next week for reevaluation Sepsis Event Note (ED) - Evaluation Sepsis Screening Result: No Definite Risk - Focused Exam Vital Signs: Vital Signs Temp Pulse Resp BP Pulse Ox 05/09/21 23:41 36.5 C 131 H 20 145/82 H 96
== END 2021-05-10 00:35 | disposition home or self-care (01) ==
LOC: MW.ED 23:27
DX: L03.213 Periorbital cellulitis (principal); I10 Essential (primary) hypertension; Z91.040 Latex allergy status; Z88.5 Allergy status to narcotic agent; Z79.01 Long term (current) use of anticoagulants; Z79.899 Other long term (current) drug therapy
CPT/HCPCS: 99283; A9270

== ENCOUNTER 2022-08-05 01:25 | Observation (INO) | payer SELFPAY ==
[2022-08-05] MEDS ORDERED: Sodium Chloride 0.9% 10 ML Syringe FLUSH PRN ×2 (01:35→12:56)
[2022-08-05] MEDS ORDERED: Sodium Chloride 0.9% 2.5 ML Syringe FLUSH PRN ×2 (01:35→12:56)
[2022-08-05] MEDS ORDERED: Albuterol/Ipratropium 3.0-0.5 MG/3 ML Neb Soln NEB ONE (01:36)
[2022-08-05] MEDS ORDERED: Diltiazem 50 MG/10 ML SDV IVPUSH ONE (01:48)
[2022-08-05] MEDS ORDERED: methylPREDNISolone Sodium Succinate 125 MG/2 ML SDV IVPUSH ONE (01:56)
[2022-08-05] MEDS ORDERED: Sodium Chloride 0.9% 100 ML ONE (01:57)
[2022-08-05] MEDS ORDERED: Diltiazem 25 MG/5 ML SDV ONE (01:58)
[2022-08-05] MEDS ORDERED: Diltiazem 25 MG/5 ML SDV IVPUSH ONE ×2 (01:59→02:28)
[2022-08-05] MEDS ORDERED: Diltiazem 100 MG in Sodium Chloride 0.9% 100 ML IV SCH (02:00)
[2022-08-05 02:17] LABS: CARBON DIOXIDE,CO2 23.4 mmol/L (21.0-32.0); POTASSIUM,K 3.8 mmol/L (3.5-5.1)
[2022-08-05 02:19] LABS: CORONAVIRUS COVID-19 NAA NEGATIVE (NEGATIVE); INFLUENZA A NAA POSITIVE (NEGATIVE); INFLUENZA B NAA NEGATIVE (NEGATIVE); RESPIRATORY SYNCYTIAL VIR NAA NEGATIVE (NEGATIVE)
[2022-08-05] MEDS ORDERED: Oseltamivir 75 MG Cap PO ONE (02:22)
[2022-08-05] MEDS ORDERED: Sodium Chloride 0.9% 500 ML IV ONE (04:06)
[2022-08-05] MEDS ORDERED: Diltiazem 120 MG Cap.CD PO ONE (07:32)
[2022-08-05] MEDS ORDERED: Acetaminophen 325 MG Tab PO PRN (12:56)
[2022-08-05] MEDS ORDERED: Ondansetron 4 MG/2 ML SDV IVPUSH PRN (12:56)
[2022-08-05] MEDS ORDERED: Lactated Ringers 1,000 ML IV ONE (15:15)
[2022-08-05] MEDS: Oseltamivir 75 MG Cap PO SCH ×2 (16:12→21:35)
[2022-08-05] MEDS: Apixaban 5 MG Tab PO SCH (21:34)
[2022-08-06 06:22] LABS: CARBON DIOXIDE,CO2 24.9 mmol/L (21.0-32.0)
[2022-08-06] MEDS ORDERED: Omeprazole 20 MG Cap.CR PO SCH (07:30)
[2022-08-06] MEDS ORDERED: Rosuvastatin 10 MG Tab PO SCH (09:00)
[2022-08-06] MEDS ORDERED: Metoprolol Succinate 100 MG Tab.ER PO SCH (09:00)
[2022-08-06] MEDS ORDERED: Diltiazem 120 MG Cap.CD PO SCH (09:00)
[2022-08-06] MEDS ORDERED: Aspirin 81 MG Tab.Chew PO SCH (09:00)
[2022-08-06] MEDS: Apixaban 5 MG Tab PO SCH (09:03)
[2022-08-06] MEDS: Oseltamivir 75 MG Cap PO SCH (09:06)
== END 2022-08-06 13:45 | disposition home or self-care (01) ==
LOC: MW.ED 01:25 → MW.MS 12:12
PROVIDERS: ADMIT Student in an Organized Health Care Education/Training Program; ATTEND Student in an Organized Health Care Education/Training Program
DX: I48.91 Unspecified atrial fibrillation (principal); J10.1 Influenza due to other identified influenza virus with other respiratory manifestations; I11.0 Hypertensive heart disease with heart failure; I50.9 Heart failure, unspecified; E78.2 Mixed hyperlipidemia; E07.9 Disorder of thyroid, unspecified; F17.210 Nicotine dependence, cigarettes, uncomplicated; Z91.040 Latex allergy status; Z88.5 Allergy status to narcotic agent; Z79.899 Other long term (current) drug therapy; Z79.82 Long term (current) use of aspirin; Z98.890 Other specified postprocedural states; Z20.822 Contact with and (suspected) exposure to COVID-19
CPT/HCPCS: 0241U; 36415; 71045; 80048; 80053; 83605; 83735; 83880; 84443; 84484; 85025; 93005; 93306; 94640; 96361; 96374; 96375; 96376; 99285; A9270; G0378; J2930; J3490; J7030; J7120; 99217; 99219; J7620-GY

== ENCOUNTER 2022-11-26 15:33 | Emergency (ER) | payer OTHER | END 2022-11-26 17:33 | disposition home or self-care (01) | LOC: MW.ED 15:33 | DX: S82.141A Displaced bicondylar fracture of right tibia, initial encounter for closed fracture (principal); I48.91 Unspecified atrial fibrillation; I10 Essential (primary) hypertension; Z91.040 Latex allergy status; Z88.5 Allergy status to narcotic agent; Z79.01 Long term (current) use of anticoagulants; Z79.82 Long term (current) use of aspirin; Z79.899 Other long term (current) drug therapy; V29.99XA Rider (driver) (passenger) of other motorcycle injured in unspecified traffic accident, initial encounter; Y92.410 Unspecified street and highway as the place of occurrence of the external cause | CPT/HCPCS: 73560-26-RT; 73560-RT; 73590-26-RT; 73590-RT; 73700-26-RT; 73700-RT; 99284 ==

== ENCOUNTER 2022-12-03 15:46 | Emergency (ER) | payer OTHER ==
[2022-12-03] MEDS ORDERED: Sodium Chloride 0.9% 2.5 ML Syringe FLUSH PRN (15:54)
[2022-12-03] MEDS ORDERED: Sodium Chloride 0.9% 10 ML Syringe FLUSH PRN (15:54)
[2022-12-03 17:19] LABS: CARBON DIOXIDE,CO2 27.6 mmol/L (21.0-32.0); POTASSIUM,K 3.7 mmol/L (3.5-5.1)
[2022-12-03] MEDS ORDERED: Ondansetron 4 MG/2 ML SDV IVPUSH ONE (17:42)
[2022-12-03] MEDS ORDERED: fentaNYL 50 MCG/ML SDV IVPUSH ONE (17:42)
== END 2022-12-03 18:19 | disposition home or self-care (01) ==
LOC: MW.ED 15:46
DX: G89.18 Other acute postprocedural pain (principal); M25.561 Pain in right knee; M79.671 Pain in right foot; I48.91 Unspecified atrial fibrillation; I10 Essential (primary) hypertension; E78.00 Pure hypercholesterolemia, unspecified; F17.210 Nicotine dependence, cigarettes, uncomplicated; E66.9 Obesity, unspecified; Z68.36 Body mass index [BMI] 36.0-36.9, adult; Z88.5 Allergy status to narcotic agent; Z91.040 Latex allergy status; Z79.01 Long term (current) use of anticoagulants; Z79.899 Other long term (current) drug therapy
CPT/HCPCS: 36415; 70450; 73560; 73620; 80053; 84484; 85025; 93005; 96374; 96375; 99284; J2405; J3010; J3490; 93010; 99283

== ENCOUNTER 2023-06-10 06:54 | Emergency (ER) | payer SELFPAY ==
[2023-06-10] MEDS ORDERED: HYDROmorphone 1 MG/ML Syringe IM ONE (08:16)
[2023-06-10] MEDS ORDERED: Cyclobenzaprine 10 MG Tab PO ONE (08:16)
[2023-06-10] MEDS ORDERED: Ondansetron 4 MG Tab.DIS PO ONE (08:18)
[2023-06-10] MEDS ORDERED: fentaNYL 50 MCG/ML SDV IM ONE (08:34)
== END 2023-06-10 10:36 | disposition home or self-care (01) ==
LOC: MW.ED 06:54
DX: M25.551 Pain in right hip (principal); E78.00 Pure hypercholesterolemia, unspecified; I10 Essential (primary) hypertension; E66.9 Obesity, unspecified; Z79.01 Long term (current) use of anticoagulants; Z79.82 Long term (current) use of aspirin; Z79.899 Other long term (current) drug therapy; Z88.8 Allergy status to other drugs, medicaments and biological substances; Z91.040 Latex allergy status; Z68.38 Body mass index [BMI] 38.0-38.9, adult
CPT/HCPCS: 72192; 96372; 99283; A9270; J3010

== ENCOUNTER 2025-05-28 09:42 | Day surgery (SDC) | payer BC ==
[~2025-05-28 09:42] MED LIST: ceFAZolin 2 GM in Water For Injection, Sterile 20 ML IVPUSH ONE
[2025-05-28] MEDS: Lactated Ringers 1,000 ML IV SCH (10:15)
[2025-05-28] MEDS ORDERED: propofoL 500 MG/50 ML 50 ML ONE (10:28)
[2025-05-28] MEDS ORDERED: Bupivacaine 0.5%/EPINEPHrine 1:200,000 30 ML SDV ONE (11:27)
[2025-05-28] MEDS ORDERED: dexmedeTOMIDine HCl 200 MCG/2 ML SDV ONE (12:15)
== END 2025-05-28 13:15 | disposition home or self-care (01) ==
LOC: MW.SDS 09:42
PROVIDERS: ATTEND Surgery
DX: Z12.11 Encounter for screening for malignant neoplasm of colon (principal); D12.0 Benign neoplasm of cecum; D12.5 Benign neoplasm of sigmoid colon; K57.30 Diverticulosis of large intestine without perforation or abscess without bleeding; L82.0 Inflamed seborrheic keratosis; K64.8 Other hemorrhoids; I48.91 Unspecified atrial fibrillation; I10 Essential (primary) hypertension; E78.00 Pure hypercholesterolemia, unspecified; E66.9 Obesity, unspecified; Z88.8 Allergy status to other drugs, medicaments and biological substances; Z91.040 Latex allergy status; Z79.899 Other long term (current) drug therapy; Z79.01 Long term (current) use of anticoagulants; Z68.39 Body mass index [BMI] 39.0-39.9, adult
CPT/HCPCS: 11420; 45385; J0665; J2003; J2704; J7120; 00300